=== PATIENT | female | born 2000 | race African-American/Black ===

== ENCOUNTER 2024-12-16 19:12 | Emergency (ER) | payer OTHER ==
[~2024-12-16] VITALS: Ht 154.9 cm; Wt 61.4 kg
[2024-12-16 19:25] VITALS: BP 127/92; PULSE 102; RESP 18; TEMP 99; O2SAT 100
[2024-12-16 20:35] LABS: APPEARANCE,URINE HAZY (CLEAR); GLUCOSE, URINE (UA) NEGATIVE (NEGATIVE); LEUKOCYTE ESTERASE ,URINE MODERATE (NEGATIVE); NITRATE,URINE NEGATIVE (NEGATIVE); OCCULT BLOOD,URINE LARGE (NEGATIVE); SPECIFIC GRAVITIY, URINE 1.008 (1.003-1.030)
[2024-12-16 20:38] LABS: HCG,QUAL URINE NEGATIVE (NEGATIVE)
[2024-12-16 20:51] LABS: SQUAMOUS EPITHELIAL CELL,UR Few /LPF (None Seen)
[2024-12-16] MEDS ORDERED: ACET-66 PO (21:06)
[2024-12-16] MEDS ORDERED: DIPH50CA37 PO (21:06)
[2024-12-16] MEDS ORDERED: PHEN-674 PO (21:07)
[2024-12-16] MEDS ORDERED: CEPH-558 PO (21:07)
== END 2024-12-16 21:35 | disposition home or self-care (01) ==
LOC: EMS 19:12
DX: N39.0 Urinary tract infection, site not specified (principal); F17.210 Nicotine dependence, cigarettes, uncomplicated
CPT/HCPCS: 81001; 84703; 87086; 99283